=== PATIENT | female | born 1950 | race American Indian/Alaskan Native ===

== ENCOUNTER 2016-10-29 10:05 | Outpatient (CLI) | payer MEDICARE ==
[2016-10-29] MEDS ORDERED: DOBUTamine 100 MG in D5W 92 ML IV SCH (11:00)
[2016-10-29] MEDS ORDERED: LEXISCAN IV ONE (11:30)
[2016-10-29 12:04] VITALS: BP 177/111
--- NOTE | 2016-10-29 15:12 | Treadmill Report ---
INDICATION: Chest pain. ORDERING PHYSICIAN: Rome Estevez M.D. FINDINGS: There is no scintigraphic evidence of myocardial ischemia. The left ventricle is normal in size and systolic function. The left ventricular ejection fraction is measured at 62%. Normal wall motion and wall thickening is noted on gated imaging. CONCLUSION: Normal perfusion scan. JOB# [id number] SAMIRA/AGUSTINA
== END 2016-10-29 10:06 | disposition home or self-care (01) ==
LOC: CARD 10:05
PROVIDERS: ATTEND Internal Medicine Cardiovascular Disease
DX: R07.9 Chest pain, unspecified (principal)
CPT/HCPCS: 78452; 93017; A9502; J2785; J1250

== ENCOUNTER 2017-09-17 20:05 | Emergency (ER) | payer MEDICARE ==
[2017-09-17] MEDS ORDERED: DUONEB *Not for PRN Use IH ONE (20:49)
--- NOTE | 2017-09-17 20:54 | Emergency Department Report ---
HPI - General Time Seen by Provider: 09/17/17 20:31 - HPI HPI: This is a 67-year-old female who presents to the emergency department via EMS with what appears to be some level of alcohol intoxication and the patient is agitated and combative. The patient is awake and does admit to daily and/or nightly alcohol consumption. She denies any illicit drug use. First, the patient says she is unsure why she was brought into the emergency department and thinks that a friend called the ambulance. She was able to give me the number of her daughter, Helena, who is on her way into the hospital but also says she was called by a neighbor who was the one that called EMS and that it appears that the patient either passed out or had some type of a choking episode. Patient says that she has a history of COPD but is not oxygen dependent. ED Past Medical Hx - Past Medical History Hx Hypertension: Yes Hx Diabetes: Yes Hx Arthritis: Yes Hx Asthma: Yes - Medications Home Medications: Home Medications Medication Instructions Recorded Confirmed Last Taken Type Amlodipine Bes/Olmesartan Med 06/25/13 06/25/13 Unknown History [Angel 10-20 mg] Esomeprazole Magnesium [Nexium] 06/25/13 06/25/13 Unknown History Insulin Aspart [NovoLOG Flexpen] 06/25/13 06/25/13 Unknown History Metformin HCl [Fortamet ER] 06/25/13 06/25/13 Unknown History ED Review of Systems ROS: Stated complaint: ETOH Other details as noted in HPI Comment: Unobtainable due to pts medical conditions Physical Exam - Physical Exam Physical Exam: GENERAL: The patient is well-developed well-nourished. HENT: Normocephalic. Atraumatic. Patient has moist mucous membranes. EYES: Extraocular motions are intact. Pupils equal reactive to light bilaterally. NECK: Supple. Trachea is midline. CHEST/LUNGS: Clear to auscultation. There is no respiratory distress noted. HEART/CARDIOVASCULAR: Regular. There is no tachycardia. There is no murmur. ABDOMEN: Abdomen is soft, nontender. Patient has normal bowel sounds. There is no abdominal distention. SKIN: Skin is warm and dry. NEURO: The patient is awake, alert, and oriented but intoxicated. The patient has no focal neurologic deficits. MUSCULOSKELETAL: There is no tenderness or deformity. There is no limitation range of motion. There is no evidence of acute injury. PSYCH: Patient is easily excitable and presents agitated and slightly combative. ED Course - Reevaluation(s) Reevaluation #1: Patient was yelling and combative when she first arrived. She went out into the hallway naked. She ripped the scrub top of one of the nurses. For this reason the patient was placed in soft wrist restraints. However it was only for a very short amount of time as I was able to speak with her and calm her down and she now appears calm and appropriate and cooperative. All restraints have been removed and the patient is placed on a manager monitoring and we will get blood work, EKG and a chest x-ray as a workup for this patient's fainting episode versus choking episode. 09/17/17 20:53 Reevaluation #2: The patient has been resting comfortably in bed since I saw her and took off the wrist restraints and let her know that her daughter is on the way. She allowed us to draw blood, do an EKG and a chest x-ray. 09/17/17 22:38 ED Medical Decision Making - Lab Data Result diagrams: 09/17/17 21:07 09/17/17 21:07 - EKG Data -: EKG Interpreted by Me EKG shows normal: sinus rhythm, axis, intervals, QRS complexes, ST-T waves Rate: normal - EKG Data When compared to previous EKG there are: previous EKG unavailable Interpretation: normal EKG - Radiology Data Radiology results: image reviewed interpreted by me: Chest x-ray does not show any acute process. There are no pleural effusions, obvious pneumonia and there is no pneumothorax. - Medical Decision Making This patient originally presented after having some type of choking episode or syncopal episode. However since she has been in the emergency department she has been awake and alert but appears intoxicated. This was confirmed when the blood alcohol level came back at 0.3. At first she was agitated and slightly combative. However she was redirectable and I was able to get her to calm down , rests comfortably and become cooperative. Her blood was drawn and there was no significant abnormalities found on the CBC, metabolic panel and she had a negative troponin. EKG was normal without ST elevation AK, ischemia or dysrhythmia. Chest x-ray did not show any acute process. Vital signs were stable including being afebrile. She does have some hypertension and her pulse ox stays in the low 90s. However she does have COPD and is still a current tobacco smoker. She was given a breathing treatment and has an inhaler at home to use. Her daughter came bedside and understands that she is acutely intoxicated but both of them are asking for discharge home and the daughter, Helena, says she is willing to take responsibility for her. She will drive her home and watch her this evening. They will return to the ER with any worsening of her symptoms or any acute distress. - Differential Diagnosis Alcohol intoxication, vasovagal, orthostatic hypotension, COPD Critical Care Time: No Critical care attestation.: If time is entered above; I have spent that time in minutes in the direct care of this critically ill patient, excluding procedure time. ED Disposition Clinical Impression: Alcohol abuse COPD (chronic obstructive pulmonary disease) Qualifiers: COPD type: unspecified COPD Qualified Code(s): J44.9 - Chronic obstructive pulmonary disease, unspecified Alcohol intoxication Qualifiers: Complication of substance-induced condition: uncomplicated Qualified Code(s): F10.920 - Alcohol use, unspecified with intoxication, uncomplicated Hypertension Qualifiers: Hypertension type: essential hypertension Qualified Code(s): I10 - Essential ( primary) hypertension Disposition: DC- TO HOME OR SELFCARE Is pt being admited?: No Condition: Stable Instructions: Chronic Obstructive Pulmonary Disease (ED), Alcohol Intoxication (ED), Abuse of Alcohol (ED), Hypertension (ED) Additional Instructions: Please follow-up with your primary care physician the next few days. Return to the emergency Department with any worsening of your symptoms or any acute distress. Try and stay away from foods that are high in salt and caffeinated products to help with your blood pressure. Keep a blood pressure log. It is recommended that you try and decrease the amount of alcohol you drink or even try and quit. It is also recommended that you try and quit smoking 2 help with your COPD and your breathing. I have given her a referral for a local gas engine operator, Dr. Zhao, to follow up regarding your COPD. Referrals: PRIMARY CARE, [Primary Care Provider] - 3-5 Days ROBIN SPEARS MD [Staff Physician] - 3-5 Days AMA ZHAO MD [Staff Physician] - 3-5 Days Time of Disposition: 22:31
[2017-09-17 21:03] VITALS: BP 161/80
--- NOTE | 2017-09-17 21:30 | XRay Report ---
FINAL REPORT PROCEDURE: XR CHEST 1V AP TECHNIQUE: Chest radiograph anteroposterior view. CPT 87577 HISTORY: cough COMPARISON: No prior studies are available for comparison. FINDINGS: Heart: Normal. Mediastinum/Vessels: Normal. Lungs/Pleural space: Lungs are clear and expanded. There are no infiltrates, effusions or pneumothoraces.. Bony thorax: No acute osseous abnormality. Life support devices: None. IMPRESSION: No acute cardiopulmonary abnormality.
[2017-09-17 21:42] LABS: Basophils % (Auto) 0.9 % (0.0-1.8); Eosinophils % (Auto) 0.3 % (0.0-4.3); Hematocrit 37.3 % (30.3-42.9); Mean Corpuscular HGB Conc 32 % (30-34); Mean Corpuscular Hemoglobin 29 pg (28-32); Mean Corpuscular Volume 90 fl (79-97); Platelet Count 233 K/mm3 (140-440); Red Blood Count 4.17 M/mm3 (3.65-5.03); Red Cell Distribution Width 18.7 % (13.2-15.2); White Blood Count 6.7 K/mm3 (4.5-11.0)
[2017-09-17 21:58] LABS: Alanine Aminotransferase 18 units/L (7-56); Albumin 4.2 g/dL (3.9-5); Albumin/Globulin Ratio 1.6 %; Alkaline Phosphatase 78 units/L (35-129); Anion Gap 27 mmol/L; BUN/Creatinine Ratio 28; Bilirubin,Total < 0.20 mg/dL (0.1-1.2); Blood Urea Nitrogen 22 mg/dL (7-17); Calcium 8.5 mg/dL (8.4-10.2); Carbon Dioxide 19 mmol/L (22-30); Chloride 99.3 mmol/L (98-107); Glucose 98 mg/dL (65-100); Potassium 3.4 mmol/L (3.6-5.0); Sodium 142 mmol/L (137-145); Total Protein 6.8 g/dL (6.3-8.2)
== END 2017-09-17 23:12 | disposition home or self-care (01) ==
LOC: ED 20:05
DX: F10.920 Alcohol use, unspecified with intoxication, uncomplicated (principal); J44.9 Chronic obstructive pulmonary disease, unspecified; I10 Essential (primary) hypertension; E11.9 Type 2 diabetes mellitus without complications; J45.909 Unspecified asthma, uncomplicated
CPT/HCPCS: 36415; 71010; 80053; 84484; 85025; 93005; 93010; 94640; 99284; G0480; 80320